=== PATIENT | male | born 1970 | race Caucasian/White ===

== ENCOUNTER 2021-11-07 10:51 | Emergency (ER) | payer OTHER ==
[~2021-11-07] VITALS: Ht 170.2 cm; Wt 131.5 kg
[~2021-11-07 10:51] MED LIST: NAPROXEN500 MG PO; NEXIUM20 MG PO; NITROSTAT0.4 MG SL; NORCO 5-325 TA1 EACH PO; PEPCID20 MG PO; PROTONIX40 MG PO; TUMS ULTRA400 MG PO; ZYRTEC10 MG PO
[2021-11-07] MEDS ORDERED: ONDANSETRON ODT4 MG PO (13:22)
[2021-11-07] MEDS ORDERED: HYDROCODON-ACE1 EA10 PO (13:22)
== END 2021-11-07 13:09 | disposition home or self-care (01) ==
LOC: ED 10:51
DX: N20.2 Calculus of kidney with calculus of ureter (principal); K21.9 Gastro-esophageal reflux disease without esophagitis; Z79.899 Other long term (current) drug therapy
CPT/HCPCS: 36415; 74176; 80053; 81001; 83690; 85025; 96374; 96375; 99284-25; J1170; J1885; J2405

== ENCOUNTER 2023-08-03 06:50 | Day surgery (SDC) | payer OTHER ==
[~2023-08-03] VITALS: Ht 170.2 cm; Wt 132.0 kg
[~2023-08-03 06:50] MED LIST changes: +FISH OIL 1,0001 EAC6 PO; +HYDROCODON-ACE1 EA10 PO; +ONDANSETRON ODT4 MG PO; +VITAMIN D250 MCG PO; +ZINC30 MG PO
[2023-08-03 07:06] VITALS: BP 138/85
--- NOTE | 2023-08-03 08:34 | NUR ---
08/03/23 0834 Della Cortés 0830 TO PACU, ALERT AND AWAKE. DENIES C/O. ENCOURAGED TO PASS GAS.
[2023-08-03 08:47] VITALS: BP 119/84
--- NOTE | 2023-08-03 09:29 | OR ---
[facility] [address], [place] [address] Signed DATE OF OPERATION: 08/03/2023 SURGEON: Cyrus Garcia MD PREOPERATIVE DIAGNOSIS: Screening. POSTOPERATIVE DIAGNOSIS: Minimal sigmoid diverticulosis. PROCEDURE: Colonoscopy without biopsy. ESTIMATED BLOOD LOSS: None. INDICATIONS: Adolfo is a 52-year-old, obese gentleman, asked to see me for his initial screening colonoscopy. He has no lower GI complaints. There is no family history of colon polyps or colon cancer. He did mention to me his rather significant sleep apnea requiring CPAP mask. He said he cannot sleep more than 20 minutes without the CPAP mask. In addition, he said he has gained some weight in the last couple of years. He told me it would be very funk to have an anesthesia provider help with his airway. I would be in agreement with that. Therefore, we did have our anesthesia provider here today as well as propofol infusion. That proved to be a funk decision. In the office I had given him a pamphlet on colonoscopy. He has been through upper endoscopy a few years ago. Therefore, he is familiar with this process. There is risk including, but not limited to gas, bloating, crampy abdominal pain, bleeding, perforation requiring surgery, and missed diagnosis. He also understands the need for the monitored anesthesia care. He will need an adult person to take him home afterwards. He had expressed understanding and wished to proceed. PROCEDURE IN DETAIL: Adolfo was taken into our endoscopy suite and placed in the left lateral decubitus position. He was given monitored anesthesia care with propofol infusion per nurse supervisor benzene refining. A digital rectal exam was performed. There were no external hemorrhoids. A good sphincter tone. He is a large man and I really could not reach the prostate gland. The adult colonoscope was introduced and advanced all the way around into the cecum, under direct visualization of camera without difficulty. His prep was quite good. We could easily see the appendiceal orifice and the ileocecal valve. The scope Electronically Signed By: CYRUS GARCIA MD 08/03/23 0929 PATIENT NAME: ADOLFO RAMOS OPERATIVE REPORT DATE OF : 72 REPORT #: [id number] PHYSICIAN: CYRUS GARCIA MD PCP: KARLIE LAURA PA-C REPORT IS CONFIDENTIAL AND NOT TO BE RELEASED WITHOUT AUTHORIZATION [facility] [address], [place] [address] Signed was then slowly withdrawn. We took pictures throughout for photodocumentation. He has just a few diverticula in the sigmoid colon. They were moderate in size, few in number and scattered about. Once in the rectum, the scope had been retroflexed really very little if any internal hemorrhoid tissue. After this, the gas was suctioned out. The colonoscope was removed. Adolfo tolerated the procedure quite well. RECOMMENDATIONS: Adolfo can follow up in 10 years for repeat colonoscopy. He will be funk to use monitored anesthesia care in the future. MD ASHANTI Tirado/KETURAHL /[id number] cc: MD Karlie Tirado PA-C Patient Chart Copies: CYRUS GARCIA MD, CHLOE K PA-C ~ Electronically Signed By: CYRUS GARCIA MD 08/03/23 0929 PATIENT NAME: ADOLFO RAMOS CYRIL OPERATIVE REPORT DATE OF : 72 REPORT #: [id number] PHYSICIAN: CYRUS GARCIA MD PCP: KARLIE LAURA PA-C REPORT IS CONFIDENTIAL AND NOT TO BE RELEASED WITHOUT AUTHORIZATION
== END 2023-08-03 08:58 | disposition home or self-care (01) ==
LOC: OPS 06:50 → DS 06:50 → OPS 08:20 → DS 09:00 → OPS 09:00
PROVIDERS: ATTEND Colon & Rectal Surgery
PROC: 0DJD8ZZ Inspection of Lower Intestinal Tract, Via Natural or Artificial Opening Endoscopic (ICD-10-PCS; principal; 2023-08-03 08:20)
DX: Z12.11 Encounter for screening for malignant neoplasm of colon (principal); K57.30 Diverticulosis of large intestine without perforation or abscess without bleeding; K64.8 Other hemorrhoids; K21.9 Gastro-esophageal reflux disease without esophagitis; G47.33 Obstructive sleep apnea (adult) (pediatric); E66.9 Obesity, unspecified; Z68.42 Body mass index [BMI] 45.0-49.9, adult; Z79.899 Other long term (current) drug therapy
CPT/HCPCS: 00811; J2001; J2704

== ENCOUNTER 2024-05-22 17:31 | Emergency (ER) | payer OTHER ==
[~2024-05-22] VITALS: Ht 170.2 cm; Wt 138.7 kg
[2024-05-22] MEDS ORDERED: HIBICLENS118 ML TOP (20:10)
[2024-05-22] MEDS ORDERED: TRAMADOL HCL50 MG PO (20:18)
[2024-05-22] MEDS ORDERED: TRAMADOL HCL 50 MG HOME.PACK PO ONE (20:30)
[2024-05-22 20:33] VITALS: BP 128/69
== END 2024-05-22 20:35 | disposition home or self-care (01) ==
LOC: ED 17:31
DX: K13.0 Diseases of lips (principal); Z79.899 Other long term (current) drug therapy
CPT/HCPCS: 99282; A9270